=== PATIENT | male | born 1990 | race African-American/Black ===

== ENCOUNTER 2017-03-18 19:40 | Emergency (ER) | payer MEDICARE, MEDICAID ==
[~2017-03-18] VITALS: Ht 152.4 cm; Wt 68.4 kg
[~2017-03-18 19:40] MED LIST: LORTAB 5 OR; LORTAB 7.57.5 MG PO; MOTRIN800 MG PO; NAPROSYN500 MG OR; NO; NO HOME MEDICATION; PENICILLIN V P500 MG PO; PENICILLN VK500 MG OR; TRAMADOL HCL50 MG OR; ULTRAM50 M1 PO
[2017-03-18] MEDS ORDERED: AMOXICILLIN500 MG PO (20:18)
[2017-03-18] MEDS ORDERED: PERCOCET 5/325M1 TAB PO (20:18)
[2017-03-18 21:11] VITALS: BP 149/105
== END 2017-03-18 21:11 | disposition home or self-care (01) ==
LOC: ED 19:40
DX: K05.10 Chronic gingivitis, plaque induced (principal)

== ENCOUNTER 2017-07-12 23:01 | Emergency (ER) | payer MEDICARE, MEDICAID ==
[~2017-07-12] VITALS: Ht 154.9 cm; Wt 64.4 kg
[~2017-07-12 23:01] MED LIST changes: +AMOXICILLIN500 MG PO; +PERCOCET 5/325M1 TAB PO
[2017-07-12] MEDS ORDERED: AMOXICILLIN500 MG PO (23:20)
[2017-07-12] MEDS ORDERED: LORTAB 1010 MG PO (23:20)
[2017-07-12 23:23] VITALS: BP 146/83
== END 2017-07-12 23:30 | disposition home or self-care (01) ==
LOC: ED 23:01 → EDBD 23:11 → ED 23:11
DX: K04.7 Periapical abscess without sinus (principal); F17.210 Nicotine dependence, cigarettes, uncomplicated

== ENCOUNTER 2017-12-08 17:32 | Emergency (ER) | payer MEDICARE, MEDICAID ==
[~2017-12-08] VITALS: Ht 154.9 cm; Wt 63.0 kg
[~2017-12-08 17:32] MED LIST changes: +LORTAB 1010 MG PO
[2017-12-08 18:10] VITALS: BP 136/80
== END 2017-12-08 18:10 | disposition home or self-care (01) ==
LOC: ED 17:32
DX: K13.70 Unspecified lesions of oral mucosa (principal); F17.210 Nicotine dependence, cigarettes, uncomplicated

== ENCOUNTER 2020-09-16 11:10 | Emergency (ER) | payer MEDICARE ==
[~2020-09-16] VITALS: Ht 154.9 cm; Wt 67.0 kg
[2020-09-16] MEDS ORDERED: PENICILLN VK500 MG PO (12:05)
[2020-09-16] MEDS ORDERED: TORADOL PO (12:05)
[2020-09-16 12:15] VITALS: BP 126/79
== END 2020-09-16 12:15 | disposition home or self-care (01) ==
LOC: ED 11:10
DX: K02.9 Dental caries, unspecified (principal); F17.290 Nicotine dependence, other tobacco product, uncomplicated

== ENCOUNTER 2020-12-14 09:45 | Emergency (ER) | payer MEDICARE, MEDICAID ==
[~2020-12-14] VITALS: Ht 154.9 cm; Wt 70.0 kg
[~2020-12-14 09:45] MED LIST changes: +PENICILLN VK500 MG PO; +TORADOL PO
[2020-12-14] MEDS ORDERED: ALL DAY10 MG PO (11:31)
[2020-12-14 12:01] VITALS: BP 138/78
== END 2020-12-14 12:01 | disposition home or self-care (01) ==
LOC: ED 09:45
DX: T78.40XA Allergy, unspecified, initial encounter (principal); F17.200 Nicotine dependence, unspecified, uncomplicated; X58.XXXA Exposure to other specified factors, initial encounter; Z20.822 Contact with and (suspected) exposure to COVID-19

== ENCOUNTER 2024-02-24 02:23 | Emergency (ER) | payer MEDICARE, MEDICAID ==
[~2024-02-24] VITALS: Ht 154.9 cm; Wt 66.0 kg
[~2024-02-24 02:23] MED LIST changes: +ALL DAY10 MG PO
[2024-02-24] MEDS ORDERED: SODIUM CHLORIDE 0.9% 1,000 ML IV STA (02:42)
[2024-02-24] MEDS ORDERED: KETOROLAC TROMETHAMINE 30 MG/ML SDV IV ONE (02:45)
[2024-02-24] MEDS ORDERED: PROMETHAZINE HCL 25 MG/ML AMP IV ONE (02:45)
[2024-02-24] MEDS ORDERED: LOPERAMIDE HCL 2 MG CAP PO ONE (02:45)
[2024-02-24 03:01] LABS: BASO% 0.3 % (0-3); EOS% 0.1 % (0-8); HEMATOCRIT 47.4 % (39.0-50.0); HEMOGLOBIN 15.1 g/dl (14.0-18.0); IMMATURE GRANULOCYTES 0.4 % (0.0-5.0); LYMPH% 16.5 % (15-41); MEAN CELL VOLUME 84.3 fL CALC (80.0-100.0); MEAN CORPUSCULAR HGB 26.9 pG CALC (26.0-32.0); MEAN CORPUSCULAR HGB CONC 31.9 g/dL CAL (32.0-36.0); NEUT# 4.78 thou/uL (1.82-7.42); NEUT% 67.7 % (42-76); RED BLOOD COUNT 5.62 mill/uL (4.70-6.10)
[2024-02-24 03:01] LABS: URINE BILIRUBIN - DIPSTICK Negative (NEGATIVE); URINE BLOOD DIPSTICK Negative (NEGATIVE); URINE GLUCOSE - DIPSTICK Negative (NEGATIVE); URINE KETONE Negative (NEGATIVE); URINE LEUK ESTERASE Negative (NEGATIVE); URINE NITRITE - DIPSTICK Negative (Negative); URINE PH 6.5 (4.5-8.0); URINE PROTEIN - DIPSTICK Trace mg/dL (NEG-TRACE); URINE SPECIFIC GRAVITY 1.025; URINE UROBILINOGEN - DIPSTICK 0.2 E.U./dL (0.2)
[2024-02-24 03:02] LABS: URINE COLOR Yellow
[2024-02-24 03:11] LABS: ALBUMIN 4.7 g/dL (3.2-5.0); BILIRUBIN, TOTAL 0.5 mg/dL (0.2-1.3); TOTAL PROTEIN 7.9 g/dL (6.3-8.2)
[2024-02-24] MEDS ORDERED: PROMETHAZINE HY25 M1 PO (04:47)
[2024-02-24] MEDS ORDERED: DICYCLOMINE HYD10 MG PO (04:47)
[2024-02-24 05:08] VITALS: BP 120/85
== END 2024-02-24 05:08 | disposition home or self-care (01) ==
LOC: ED 02:23
PROVIDERS: Family Medicine
DX: A08.4 Viral intestinal infection, unspecified (principal); F17.200 Nicotine dependence, unspecified, uncomplicated; Z20.822 Contact with and (suspected) exposure to COVID-19

== ENCOUNTER 2024-02-27 06:38 | Emergency (ER) | payer MEDICARE, MEDICAID ==
[~2024-02-27] VITALS: Ht 154.9 cm; Wt 63.6 kg
[2024-02-27] VITALS (14 sets, daily range): BP systolic 95–155; BP diastolic 69–96
[~2024-02-27 06:38] MED LIST changes: +DICYCLOMINE HYD10 MG PO; +PROMETHAZINE HY25 M1 PO
[2024-02-27] MEDS ORDERED: ALUM & MAG HYDROX-SIMETHICONE 30 ML PO ONE (08:15)
[2024-02-27] MEDS ORDERED: ONDANSETRON HCl 4 MG/2 ML SDV IV ONE (08:15)
[2024-02-27] MEDS ORDERED: LIDOCAINE VISCOUS 2% 15 ML UDC PO ONE (08:15)
[2024-02-27 08:30] LABS: BASO% 0.1 % (0-3); EOS% 1.1 % (0-8); HEMATOCRIT 44.2 % (39.0-50.0); HEMOGLOBIN 14.6 g/dl (14.0-18.0); IMMATURE GRANULOCYTES 0.1 % (0.0-5.0); LYMPH% 18.6 % (15-41); MEAN CELL VOLUME 82.5 fL CALC (80.0-100.0); MEAN CORPUSCULAR HGB 27.2 pG CALC (26.0-32.0); MONO% 11.9 % (2-13); NEUT# 6.59 thou/uL (1.82-7.42); NEUT% 68.2 % (42-76); RED BLOOD COUNT 5.36 mill/uL (4.70-6.10); RED CELL DISTRI WIDTH 13.9 % (11.5-15.5)
[2024-02-27 08:40] LABS: ALBUMIN 4.3 g/dL (3.2-5.0)
[2024-02-27] MEDS ORDERED: ISOVUE-300 (Iopamidol) 100 ML SDV IV ONE (08:50)
[2024-02-27] MEDS ORDERED: PROTONIX40 M2 PO (08:59)
[2024-02-27] MEDS ORDERED: Pantoprazole Sodium 40 MG VIAL (Protonix) IV ONE (09:00)
[2024-02-27 09:13] LABS: BILIRUBIN, TOTAL 0.5 mg/dL (0.2-1.3); CREATININE 0.9 mg/dL (0.7-1.3); POTASSIUM 3.8 mmol/l (3.5-5.1); TOTAL PROTEIN 7.9 g/dL (6.3-8.2)
== END 2024-02-27 10:11 | disposition home or self-care (01) ==
LOC: ED 06:38
PROVIDERS: Family Medicine
DX: K29.70 Gastritis, unspecified, without bleeding (principal); F17.200 Nicotine dependence, unspecified, uncomplicated
CPT/HCPCS: J2470